=== PATIENT | male | born 1940 | race Caucasian/White ===

== ENCOUNTER 2016-04-23 08:56 | Day surgery (SDC) | payer MEDICARE ==
[2016-04-23] MEDS ORDERED: IV START KIT ONE (09:16)
[2016-04-23] MEDS ORDERED: SODIUM CHLORIDE 0.9% 1,000 ML ONE (09:16)
[2016-04-23] MEDS ORDERED: LIDOCAINE Viscous 2% 15 ML UDCUP ONE ×2 (10:25→10:36)
[2016-04-23] MEDS ORDERED: PROPOFOL 40 ML IV ONE (10:26)
[2016-04-23] MEDS ORDERED: LACTATED RINGERS 1,000 ML IV SCH (11:15)
== END 2016-04-23 11:56 | disposition home or self-care (01) ==
LOC: SDC 08:56
PROVIDERS: ATTEND Surgery
PROC: 0D738ZZ Dilation of Lower Esophagus, Via Natural or Artificial Opening Endoscopic (ICD-10-PCS; principal; 2016-04-23)
DX: K22.2 Esophageal obstruction (principal); K44.9 Diaphragmatic hernia without obstruction or gangrene; K29.70 Gastritis, unspecified, without bleeding; K29.80 Duodenitis without bleeding; I20.9 Angina pectoris, unspecified; E11.9 Type 2 diabetes mellitus without complications; E78.1 Pure hyperglyceridemia
CPT/HCPCS: 43249; A9270 ×2; J7030